=== PATIENT | female | born 1975 | race Two or more races ===

== ENCOUNTER 2018-03-20 13:32 | Emergency (ER) | payer SELFPAY ==
[~2018-03-20] VITALS: Ht 162.6 cm; Wt 74.4 kg
[2018-03-20 14:25] LABS: CALCIUM 8.7 mg/dL (8.5-10.1); CREATININE 0.8 mg/dL (0.6-1.0); GFR 78.7; POTASSIUM 3.4 mmol/L (3.5-5.1)
[2018-03-20 14:26] LABS: BASO % 0 % (0-3); EOS # 0.1 x10^3/uL (0.0-0.7); EOS % 1 % (0-3); HEMATOCRIT 38.5 % (36.0-47.0); HEMOGLOBIN 13.2 g/dL (12.0-15.5); LYMPH # 1.9 x10^3/uL (1.0-4.8); LYMPH % 25 % (24-48); MEAN CORPUSCULAR HEMOGLOBIN 32 pg (25-35); MEAN CORPUSCULAR HGB CONC 34 g/dL (31-37); MEAN CORPUSCULAR VOLUME 94 fL (79-100); MONO # 0.3 x10^3/uL (0.0-1.1); MONO % 4 % (0-9); NEUT # 5.3 x10^3uL (1.8-7.7); NEUT % 69 % (31-73); PLATELET COUNT 263 x10^3/uL (140-400); RED CELL DISTRIBUTION WIDTH 13.3 % (11.5-14.5); WHITE BLOOD COUNT 7.6 x10^3/uL (4.0-11.0)
--- NOTE | 2018-03-20 14:51 | EKG ---
[facility] [address] [place] [address] Test Date: 2018-03-20 Test Time: 13:48:16 Pat Name: EVITA LEVINE Department: Room: Gender: F [employer] Engagement Partner: : 1975 Requested By: SILVESTRE BAGLEY Order Number: [id number] Reading MD: Neville Smith Measurements Intervals [place] Rate: 89 P: 61 [place]: 156 QRS: 63 QRSD: 86 T: 46 QT: 354 QTc: 437 Interpretive Statements SINUS RHYTHM NORMAL ECG No previous ECG available for comparison Electronically Signed On 03-23-2018 8:48:32 BEAD MACHINE OPERATOR by Neville Smith
--- NOTE | 2018-03-20 14:56 | PHYS DOC ---
Past Medical History Past Medical History: Diabetes-Type II Alcohol Use: None Drug Use: None Adult General Chief Complaint Chief Complaint: CHEST PAIN HPI HPI Patient is a 42 year old female who presents with she is at work began having chest pressure in the mid chest and dizziness states she started to feel like she was given a pass out because her vision started to go black. Patient denies passing out. Patient states that one month ago she had another episode just like this. She denies any chest pain at this time but states she still has some dizziness. Eyes any nausea, vomiting, fever, recent illness. Patient states that 11:30 this morning when this happened she also began have some tingling in her legs and hands. Patient states that at times she may feel short of air but it comes and goes. Patient states she took ibuprofen this morning. Patient states she is eating enough foods and was recently diagnosed with prediabetes and was given metformin. Patient denies being on any other medications or any other past medical history. Patient denies smoking, drugs, alcohol. Vital signs are 77 heart rate, 157/86, 99% on room air, 20 respirations. Review of Systems Review of Systems Constitutional: Denies fever or chills [] Eyes: Denies change in visual acuity, redness, or eye pain [] HENT: Denies nasal congestion or sore throat [] Respiratory: Denies cough. Intermittent shortness of breath [] Cardiovascular: Chest pressure GI: Denies abdominal pain, nausea, vomiting, bloody stools or diarrhea [] : Denies dysuria or hematuria [] Musculoskeletal: Denies back pain or joint pain [] Integument: Denies rash or skin lesions [] Neurologic: Denies headache, focal weakness or sensory changes. Tingling in hands and feet, dizziness [] Endocrine: Denies polyuria or polydipsia [] All other systems were reviewed and found to be within normal limits, except as documented in this note. Allergies Allergies Allergies Coded Allergies Type Severity Reaction Last Updated Verified No Known Drug Allergies 03/20/18 No Physical Exam Physical Exam Constitutional: Well developed, well nourished, no acute distress, non-toxic appearance. [] HENT: Normocephalic, atraumatic, bilateral external ears normal, oropharynx moist, no oral exudates, nose normal. [] Eyes: PERRLA, EOMI, conjunctiva normal, no discharge. [] Neck: Normal range of motion, no tenderness, supple, no stridor. [] Cardiovascular:Heart rate regular rhythm, no murmur [] Lungs & Thorax: Bilateral breath sounds clear to auscultation [] Abdomen: Bowel sounds normal, soft, no tenderness, no masses, no pulsatile masses. [] Skin: Warm, dry, no erythema, no rash. [] Back: No tenderness, no CVA tenderness. [] Extremities: No tenderness, no cyanosis, no clubbing, ROM intact, no edema. [] Neurologic: Alert and oriented X 3, normal motor function, normal sensory function, no focal deficits noted. [] Psychologic: Affect normal, judgement normal, mood normal. [] Current Patient Data Vital Signs Vital Signs Date Time Temp Pulse Resp B/P (MAP) Pulse Ox O2 Delivery O2 Flow Rate FiO2 03/20/18 16:56 74 16 132/80 (97) 98 Room Air 03/20/18 13:48 98.3 98.3 Lab Values Laboratory Tests Test 03/20/18 14:00 03/20/18 16:45 White Blood Count 7.6 x10^3/uL (4.0-11.0) Red Blood Count 4.10 x10^6/uL (3.50-5.40) Hemoglobin 13.2 g/dL (12.0-15.5) Hematocrit 38.5 % (36.0-47.0) Mean Corpuscular Volume 94 fL (79-100) Mean Corpuscular Hemoglobin 32 pg (25-35) Mean Corpuscular Hemoglobin Concent 34 g/dL (31-37) Red Cell Distribution Width 13.3 % (11.5-14.5) Platelet Count 263 x10^3/uL (140-400) Neutrophils (%) (Auto) 69 % (31-73) Lymphocytes (%) (Auto) 25 % (24-48) Monocytes (%) (Auto) 4 % (0-9) Eosinophils (%) (Auto) 1 % (0-3) Basophils (%) (Auto) 0 % (0-3) Neutrophils # (Auto) 5.3 x10^3uL (1.8-7.7) Lymphocytes # (Auto) 1.9 x10^3/uL (1.0-4.8) Monocytes # (Auto) 0.3 x10^3/uL (0.0-1.1) Eosinophils # (Auto) 0.1 x10^3/uL (0.0-0.7) Basophils # (Auto) 0.0 x10^3/uL (0.0-0.2) D-Dimer (Rhonda) < 0.27 ug/mlFEU Sodium Level 138 mmol/L (136-145) Potassium Level 3.4 mmol/L (3.5-5.1) L Chloride Level 101 mmol/L (98-107) Carbon Dioxide Level 27 mmol/L (21-32) Anion Gap 10 (6-14) Blood Urea Nitrogen 13 mg/dL (7-20) Creatinine 0.8 mg/dL (0.6-1.0) Estimated GFR (Cockcroft-Gault) 78.7 Glucose Level 158 mg/dL (70-99) H Calcium Level 8.7 mg/dL (8.5-10.1) Troponin I Quantitative < 0.017 ng/mL (0.000-0.055) < 0.017 ng/mL (0.000-0.055) Laboratory Tests 03/20/18 14:00 Laboratory Tests 03/20/18 14:00 EKG EKG Sinus rhythm no STEMI Interpretation Time: [address] Mcdowell Radiology/Procedures Radiology/Procedures Chest x-ray Impressions: [id number] [place] [address] IMAGING REPORT Signed PATIENT: EVITA LEVINE ACCOUNT: [id number] : 1975 LOCATION: ER AGE: 42 SEX: F EXAM STATUS: REG ER ORD. PHYSICIAN: SILVESTRE BAGLEY APRN REASON: CHEST PAIN PROCEDURE: CHEST PA & LATERAL Chest, PA and Lateral: Technique: PA and lateral views of the chest were obtained. History: Chest pressure for one month. Comparison: None. Findings: The heart and pulmonary vasculature appear within normal limits. The lungs are clear. The pleural margins are clear. Impression: No acute chest process is seen. Electronically signed by: Nba Moyer MD (03/20/2018 3:05 PM) [id number] DICTATED and SIGNED BY: NBA MOYER MD DATE: 03/20/18 1504 Course & Med Decision Making Course & Med Decision Making Patient is a 42 year old female who presents with she is at work began having chest pressure in the mid chest and dizziness states she started to feel like she was given a pass out because her vision started to go black. Patient denies passing out. Patient states that one month ago she had another episode just like this. She denies any chest pain at this time but states she still has some dizziness. Eyes any nausea, vomiting, fever, recent illness. Patient states that 11:30 this morning when this happened she also began have some tingling in her legs and hands. Patient states that at times she may feel short of air but it comes and goes. Patient states she took ibuprofen this morning. Patient states she is eating enough foods and was recently diagnosed with prediabetes and was given metformin. Patient denies being on any other medications or any other past medical history. Patient denies smoking, drugs, alcohol. Vital signs are 77 heart rate, 157/86, 99% on room air, 20 respirations. EKG shows normal sinus rhythm and no STEMI. Troponin is negative. Has no swelling to any of her extremities. Alert and oriented. Skin is pink warm and dry. PERC 0. PERRLA. Neurologically intact. Speaks in full clear sentences. Steady ambulatory gait. Chest xray shows no acute findings. D-dimer negative. Heart score 1. Signs are stable. Patient is to follow-up with a front end manager. There troponin is negative. [] Dragon Disclaimer Dragon Disclaimer This electronic medical record was generated, in whole or in part, using a voice recognition dictation system. Departure Departure Impression: Primary Impression: Chest pain Disposition: HOME, SELF-CARE Condition: STABLE Referrals: NO PCP (PCP) CIRO WIN MD Patient Instructions: Chest Pain (Nonspecific) Additional Instructions: FOLLOW UP WITH CARDIOLOGY SOON POSSIBLE. Problem Qualifiers Primary Impression: Chest pain Chest pain type: unspecified Qualified Codes: R07.9 - Chest pain, unspecified KEVYNSILVESTER M CHERRY CUTTER Mar 20, 2018 14:56
--- NOTE | 2018-03-20 15:09 | RAD ---
Chest, PA and Lateral: Technique: PA and lateral views of the chest were obtained. History: Chest pressure for one month. Comparison: None. Findings: The heart and pulmonary vasculature appear within normal limits. The lungs are clear. The pleural margins are clear. Impression: No acute chest process is seen. Electronically signed by: Nba Moyer MD (03/20/2018 3:05 PM) [id number]
[2018-03-20 17:40] VITALS: BP 122/72
== END 2018-03-20 17:44 | disposition home or self-care (01) ==
LOC: ER 13:32
DX: R07.89 Other chest pain (principal); R42 Dizziness and giddiness; R20.2 Paresthesia of skin; E11.9 Type 2 diabetes mellitus without complications
CPT/HCPCS: 36415; 71046; 80048; 84484; 85025; 85379; 93005; 99284-25